=== PATIENT | female | born 1965 | race Caucasian/White ===

== ENCOUNTER 2025-01-05 21:37 | Emergency (ER) | payer OTHER ==
[2025-01-05] MEDS ORDERED: Pantoprazole 40 MG VIAL ONE (22:25)
[2025-01-05] MEDS ORDERED: Ondansetron PF 4 MG/2 ML Vial ONE (22:25)
[2025-01-05 22:31] LABS: #Basophils 0.3 thou/uL (0.0-0.2); #Eosinophils 0.0 thou/uL (0.0-0.7); #Lymphocytes 1.0 thou/uL (1.20-3.40); #Monocytes 0.7 thou/uL (0.11-0.59); #Neutrophils 9.7 thou/uL (1.40-6.50); %Basophils 2.4 % (0.0-1.0); %Eosinophils 0.4 % (0.0-10.0); %Lymphocytes 8.6 % (21.0-51.0); %Monocytes 5.6 % (0.0-10.0); %Neutrophils 83.1 % (42.0-75.0); Glucose, Urine (Dipstick) Negative (Negative); Hematocrit 45.6 % (36.0-47.0); Hemoglobin 17.1 g/dL (12.0-16.0); Leukocyte Negative (Negative); Mean Corpuscular Hemoglobin 31.9 pg (27.0-31.0); Mean Corpuscular Volume 85.1 fl (78.0-98.0); Platelet Count 267 10x3/uL (130-400); Protein, Urine (Dipstick) 30 mg/dL (Neg-Trace); Red Blood Cell (RBC) Count 5.36 mill/uL (4.20-5.40); Specific Gravity, Urine Greater/Equal 1.030 (1.005-1.030); White Blood Cell (WBC) Count 11.6 10x3/uL (4.8-10.8)
[2025-01-05 22:36] LABS: Bacteria/HPF 1+ HPF (None Seen); CAUTI Indications for Culture Fever or rigors; RBC/HPF 0-3 HPF (0-3); WBC/HPF 0-3 HPF (0-3)
[2025-01-05 22:37] LABS: Urine Culture Reflex No No
[2025-01-05 22:41] LABS: ALT (SGPT) 22 U/L (Less than 34); AST (SGOT) 28 U/L (11-34); Albumin 5.0 g/dL (3.1-4.5); Alkaline Phosphatase 70 U/L (40-110); Anion Gap 20 mmol/L (10-20); BUN (Urea Nitrogen) 11 mg/dL (9.8-20.1); Bilirubin, Total 0.7 mg/dL (0.3-1.2); Calc. Creatinine Clearance 0 mL/min (70-130); Calcium 10.3 mg/dL (7.8-10.44); Carbon Dioxide 26 mmol/L (22-29); Chloride 101 mmol/L (98-107); Globulin 3.4 g/dL (2.4-3.5); Glucose 105 mg/dL (70-105); Lipase 24 U/L (8-78); Potassium 4.0 mmol/L (3.5-5.1); Sodium 143 mmol/L (136-145)
== END 2025-01-05 23:45 | disposition home or self-care (01) ==
LOC: BURERS 21:37
DX: E86.0 Dehydration (principal); E78.5 Hyperlipidemia, unspecified; T38.3X5A Adverse effect of insulin and oral hypoglycemic [antidiabetic] drugs, initial encounter
CPT/HCPCS: 80053; 81001; 83690; 85025; 96361; 96374; 96375; J2405; J2470